=== PATIENT | female | born 1975 | race Caucasian/White ===

== ENCOUNTER 2017-07-12 13:16 | Outpatient (CLI) | payer OTHER ==
[~2017-07-12] VITALS: Ht 162.6 cm; Wt 103.6 kg
[2017-07-12 13:21] VITALS: BP 119/57
== END 2017-07-12 14:00 | disposition home or self-care (01) ==
LOC: EDSEX 13:16 → LDOP 13:16
PROVIDERS: ATTEND Obstetrics & Gynecology Maternal & Fetal Medicine
DX: O09.523 Supervision of elderly multigravida, third trimester (principal); O40.3XX0 Polyhydramnios, third trimester, not applicable or unspecified; Z3A.35 35 weeks gestation of pregnancy
CPT/HCPCS: 59025; 99211; G0463